=== PATIENT | male | born 1965 | race Caucasian/White ===

== ENCOUNTER 2023-05-01 15:11 | Emergency (ER) | payer MEDICAID ==
[~2023-05-01] VITALS: Ht 167.6 cm; Wt 87.5 kg
[2023-05-01 15:40] VITALS: BP 133/81; PULSE 96; RESP 20; TEMP 98; O2SAT 99
[2023-05-01] MEDS ORDERED: KETOROLAC 30 MG/ML VIAL IM ONE (17:25)
[2023-05-01 17:44] LABS: BASOPHILS % (AUTO) 0.3 % (0.0-2.0); EOSINOPHILS % (AUTO) 0.1 % (0.0-4.0); HEMATOCRIT 48.8 % (36-52); HEMOGLOBIN 16.8 g/dL (12.0-18.0); LYMPHOCYTES # (AUTO) 0.5 K/uL (2.0-11.5); LYMPHOCYTES % (AUTO) 4.1 % (20.5-51.1); MEAN CORPUSCULAR HEMOGLOBIN 32 pg (27-31); MEAN CORPUSCULAR HGB CONC 35 g/dL (33-37); MONOCYTES # (AUTO) 0.6 K/uL (0.8-1.0); MONOCYTES % (AUTO) 4.3 % (1.7-9.3); NEUTROPHILS # (AUTO) 11.8 K/uL (1.8-7.7); NEUTROPHILS % (AUTO) 91.2 % (42.2-75.2); PLATELET COUNT (AUTO) 173 K/uL (140-450); RED CELL DISTRIBUTION WIDTH 13.2 % (11.6-13.7); WHITE BLOOD COUNT (AUTO) 12.9 K/uL (4.8-10.8)
[2023-05-01 18:00] LABS: ALBUMIN 3.5 g/dL (3.4-5.0); ANION GAP 12.9 (8-16); CALCIUM 9.2 mg/dL (8.5-10.1); CARBON DIOXIDE 26.7 mmol/L (21-32); CREATININE 1.2 mg/dL (0.6-1.3); POTASSIUM 3.6 mmol/L (3.5-5.1); TOTAL BILIRUBIN 8.7 mg/dL (0.0-1.0); TOTAL PROTEIN, SERUM 8.3 g/dL (6.4-8.2)
[2023-05-01] MEDS ORDERED: NACL 0.9% 1,000 ML IV ONE (18:35)
[2023-05-01] MEDS ORDERED: IBUP-2213 PO (21:07)
[2023-05-01] MEDS ORDERED: ONDA8TAB87 PO (21:07)
[2023-05-01 21:16] VITALS: BP 126/76; PULSE 87; RESP 19; O2SAT 96
== END 2023-05-01 21:12 | disposition home or self-care (01) ==
LOC: MED 15:11
DX: R10.13 Epigastric pain (principal); R11.10 Vomiting, unspecified; R50.9 Fever, unspecified
CPT/HCPCS: 36415; 76705; 80053; 83690; 85025; 96360; 96372; 99285; J1885; J7030; 81002